=== PATIENT | male | born 1990 | race Caucasian/White ===

== ENCOUNTER → 2017-09-29 | Outpatient (REF) | payer OTHER | LOC: M LAB REF 22:08 | DX: F11.11 Opioid abuse, in remission (principal) ==

== ENCOUNTER → 2017-10-01 | Outpatient (REF) | payer OTHER, MEDICAID ==
[2017-10-06 10:11] LABS: AMPHETAMINE SCREEN, URINE See Final Results ng/mL (Cutoff=1000); AMPHETAMINE, URINE GC/MS 2230 ng/mL (Cutoff=500); AMPHETAMINES , URINE Positive (.); AMPHETAMINES , URINE Positive (Cutoff=1000); BARBITURATES SCREEN, URINE Negative ng/mL (Cutoff=200); BENZODIAZEPINES, URINE SCREEN Negative ng/mL (Cutoff=200); CANNABINOID SCREEN, URINE Negative ng/mL (Cutoff=20); COCAINE SCREEN, URINE Negative ng/mL (Cutoff=300); CREATININE, URINE 250.8 mg/dL (20.0-300.0); FENTANYL URINE SCREEN Negative pg/mL (Cutoff=2000); METHADONE, URINE SCREEN Negative ng/mL (Cutoff=300); METHAMPHETAMINE, URINE Negative (Cutoff=500); OPIATE SCREEN, URINE Negative ng/mL (Cutoff=300); OXYCODONE, SCREEN, URINE Negative ng/mL (Cutoff=100); PCP SCREEN, URINE Negative ng/mL (Cutoff=25); SPECIFIC GRAVITY, URINE 1.028 (.); pH, URINE 5.5 (4.5-8.9)
== END ==
LOC: M LAB REF 16:55
DX: F11.11 Opioid abuse, in remission (principal)

== ENCOUNTER → 2017-10-05 | Outpatient (CLI) | payer OTHER | LOC: M OUTALCOH 07:54 | DX: Z13.9 Encounter for screening, unspecified (principal); F11.20 Opioid dependence, uncomplicated; F14.20 Cocaine dependence, uncomplicated ==

== ENCOUNTER 2017-10-27 08:00 | Outpatient (RCR) | payer OTHER | END 2017-11-06 | LOC: M OUTALCOH 08:00 | DX: F11.20 Opioid dependence, uncomplicated (principal); F14.20 Cocaine dependence, uncomplicated; F17.200 Nicotine dependence, unspecified, uncomplicated ==

== ENCOUNTER 2017-11-08 11:52 | Outpatient (RCR) | payer OTHER | END 2017-12-06 | LOC: M OUTALCOH 11:52 | DX: F11.20 Opioid dependence, uncomplicated (principal); F14.20 Cocaine dependence, uncomplicated; F17.200 Nicotine dependence, unspecified, uncomplicated ==

== ENCOUNTER 2017-12-31 12:55 | Outpatient (RCR) | payer OTHER | END 2018-01-06 | LOC: M OUTALCOH 12:55 | DX: F11.20 Opioid dependence, uncomplicated (principal); F14.20 Cocaine dependence, uncomplicated; F17.200 Nicotine dependence, unspecified, uncomplicated ==

== ENCOUNTER 2018-02-16 20:24 | Emergency (ER) | payer OTHER ==
[2018-02-16] MEDS: BACTRIM 160MG/800MG DS TAB PO (22:16)
== END 2018-02-16 22:34 | disposition home or self-care (01) ==
LOC: M ED 20:24
DX: L03.115 Cellulitis of right lower limb (principal); L03.116 Cellulitis of left lower limb; F19.20 Other psychoactive substance dependence, uncomplicated; F17.210 Nicotine dependence, cigarettes, uncomplicated
CPT/HCPCS: 99283

== ENCOUNTER 2018-03-08 19:30 | Emergency (ER) | payer OTHER ==
[2018-03-08] MEDS: CLINDAMYCIN 150 MG CAP PO (21:33)
== END 2018-03-08 21:42 | disposition home or self-care (01) ==
LOC: M ED 19:30
DX: L02.416 Cutaneous abscess of left lower limb (principal); Z86.19 Personal history of other infectious and parasitic diseases; Z72.0 Tobacco use
CPT/HCPCS: 99283

== ENCOUNTER → 2018-03-28 | Outpatient (CLI) | payer OTHER | LOC: M OUTALCOH 07:46 | DX: F11.20 Opioid dependence, uncomplicated (principal); F15.20 Other stimulant dependence, uncomplicated; F14.20 Cocaine dependence, uncomplicated ==

== ENCOUNTER 2018-08-03 22:38 | Emergency (ER) | payer OTHER ==
[~2018-08-03] VITALS: Ht 175.3 cm; Wt 63.6 kg
[~2018-08-03 22:38] MED LIST: BACT800T5 PO; CLEO300C2 PO; SUBO8MIS SL
[2018-08-03] MEDS ORDERED: LIDOCAINE 1% MDV 20ML VIAL IM ONE (23:30)
[2018-08-03] MEDS ORDERED: KEFL500C17 PO (23:57)
[2018-08-04] MEDS ORDERED: CEPHALEXIN 500 MG CAP PO ONE
[2018-08-04 00:10] VITALS: BP 119/70
[2018-08-04] MEDS ORDERED: NEOSPORIN OINT 0.9 GM PKT (FLOOR STOCK) TOP ONE (00:15)
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
== END 2018-08-04 00:13 | disposition home or self-care (01) ==
LOC: M ED 22:38
DX: S61.211A Laceration without foreign body of left index finger without damage to nail, initial encounter (principal); S50.811A Abrasion of right forearm, initial encounter; S00.11XA Contusion of right eyelid and periocular area, initial encounter; Y04.8XXA Assault by other bodily force, initial encounter; Y92.008 Other place in unspecified non-institutional (private) residence as the place of occurrence of the external cause; B19.20 Unspecified viral hepatitis C without hepatic coma; Z79.890 Hormone replacement therapy; F17.210 Nicotine dependence, cigarettes, uncomplicated

== ENCOUNTER 2018-08-30 13:03 | Inpatient (IN) | payer OTHER ==
[~2018-08-30] VITALS: Ht 175.3 cm; Wt 61.9 kg
[~2018-08-30 13:03] MED LIST changes: +KEFL500C17 PO
[2018-08-30 13:53] LABS: BASO % 0.3 % (0.0-1.0); EOS % 0.6 % (0.0-3.0); HEMATOCRIT 41.7 % (42.0-52.0); HEMOGLOBIN 14.2 g/dl (13.5-17.5); LYMPH % 15.8 % (24.0-44.0); MEAN CORPUSCULAR HEMOGLOBIN 28.6 pg (27.0-33.0); MEAN CORPUSCULAR HGB CONC 34.1 g/dl (32.0-36.5); MEAN CORPUSCULAR VOLUME 84.1 fl (80.0-96.0); MONO # 0.3 10^3/uL (0.0-0.8); NEUTROPHILS % 78.8 % (36.0-66.0); PLATELET COUNT, AUTOMATED 183 10^3/uL (150-450); RED BLOOD COUNT 4.96 10^6/uL (4.30-6.10); WHITE BLOOD COUNT 6.3 10^3/uL (4.0-10.0)
[2018-08-30 14:21] LABS: BLOOD UREA NITROGEN 12 MG/DL (7-18); C REACTIVE PROTEIN QUANTITATIV 6.88 MG/DL (0.00-0.30); CALCIUM LEVEL 9.3 MG/DL (8.5-10.1); CARBON DIOXIDE LEVEL 26 MEQ/L (21-32); CHLORIDE LEVEL 103 MEQ/L (98-107); GLOMERULAR FILTRATION RATE > 60.0 (>60); GLUCOSE, FASTING 96 MG/DL (70-100); POTASSIUM SERUM 4.1 MEQ/L (3.5-5.1); SODIUM LEVEL 137 MEQ/L (136-145)
--- NOTE | 2018-08-30 14:34 | REP ---
Hand series: Four views. History: Septic left second MCP joint. Comparison study is from August 03, 2018. Findings: There is marked soft tissue swelling about the MCP joint proximal phalanx and PIP joint of the index finger. No soft tissue gas or opaque foreign body is seen. No fracture is noted. Impression: Marked soft tissue swelling affecting the second digit at the MCP, proximal phalanx, and PIP joints. No bony abnormality. Electronically Signed by Trino Rouse MD 08/30/2018 02:26 P
[2018-08-30 14:35] LABS: ERYTHROCYTE SEDIMENTATION RATE 31 mm/hr (0-15)
--- NOTE | 2018-08-30 15:42 | CR ---
DATE OF CONSULTATION: 08/30/2018 CONSULTATION REPORT FOR: Dr. Jay Nava CHIEF COMPLAINT: Left hand pain, redness and swelling. HISTORY: The patient is a 28-year-old male presenting to the emergency room (ER) with the [facility] Department for redness, swelling, and associated pain in his left hand from IV drug use approximately three days ago. The patient injected into a small vein at the base of his index finger and the next day started noticing the pain and swelling. The patient also had a laceration to that finger that was staged up in the emergency room nearly one month ago. The patient did not have those sutures removed. The patient complaining of the majority of pain over the second metacarpophalangeal joint and to a lesser extent over the third metacarpophalangeal joint. CHRONIC MEDICAL CONDITIONS: 1. Drug abuse. 2. Hepatitis C. CHRONIC MEDICATIONS: None. ALLERGIES: No known drug allergies. SOCIAL HISTORY: The patient smokes one pack per day, alcohol and drug abuse. FAMILY HISTORY: Noncontributory. REVIEW OF SYSTEMS: The patient denies fevers, chills, nausea, vomiting or diarrhea. Denies any chest pain, shortness of breath, headaches or dizziness. Complains of pain in the left hand most pronounced over the second and third metacarpophalangeal joints with stiffness and decreased motion. PHYSICAL EXAMINATION: Well-nourished, well-developed male who appears to be in no apparent distress. He is sitting comfortably in examination room. HEART: Regular rate and rhythm. Radial pulses 2+ and equal bilaterally. RESPIRATORY: Breathing is regular and nonlabored. ABDOMEN: Soft, nontender to palpation. MUSCULOSKELETAL/SKIN: Inspection of the left hand does reveal a marked amount of edema and erythema over the second and to a lesser extent third metacarpal heads. There is quite a bit of tenderness to palpation diffusely over the second metacarpophalangeal head. No real pain tracking down the palm along the flexor tendon. There is a laceration to the finger at approximately the level of the proximal interphalangeal joint that is scabbed over. The patient does have limited range of motion of the metacarpophalangeal joint and the proximal interphalangeal joint secondary to pain and swelling. His capillary refill is brisk. Radial pulses are palpable and equal bilaterally. Light touch is intact. No pain at the proximal hand, wrist or forearm. LABORATORY DATA: Complete blood count: WBC is 6.3, RBC is 4.96, hemoglobin 14.2, hematocrit decreased at 41.7, platelets 183, neutrophil percentage elevated at 78.8, lymphocytes percent decreased at 15.8, ESR elevated at 31. Comprehensive metabolic profile: Sodium 137, potassium 4.1, chloride 103, carbon dioxide 26, anion gap 8, BUN 12, creatinine 0.70, GFR greater than 60, fasting glucose 96, lactic acid 1.2, calcium 9.3. IMAGING STUDIES: Four views of the left hand reveals marked soft tissue swelling affecting the second digit at the metacarpophalangeal joint, proximal phalanx and PIP joint. No bony abnormality. IMPRESSION: Cellulitis to the left hand over the second metacarpophalangeal joint and to a lesser extent the third metacarpophalangeal joint. PLAN: Dr. Joe, orthopedics, was consulted and recommendation was for an MRI of the left hand. Based on MRI results, the patient will likely be admitted to medicine for IV antibiotics.
[2018-08-30] MEDS ORDERED: PROHANCE 279.3MG/ML 15ML VIAL (A9576) As Ordered ONE (16:04)
[2018-08-30] MEDS ORDERED: cefTRIAXone SOD 1 GM in D5W MINI-BAG PLUS 50 ML IV ONE (18:15)
--- NOTE | 2018-08-30 18:19 | REP ---
MRI LEFT HAND WITHOUT CONTRAST: Multiple sequences obtained in the axial, coronal and sagittal planes. There is ill-defined high signal on T2-weighted images in the soft tissues of the second digit predominantly proximally near the metacarpophalangeal joint. This is predominantly lateral and anteriorly located. There is soft tissue swelling. The findings are most consistent with cellulitis and phlegmonous change with edema. No drainable abscess collection is seen. Osseous structures demonstrate normal marrow signal with no evidence of occult fracture or osteomyelitis. Flexor and extensor tendons appear intact. Osseous structures are well aligned. Collateral ligaments appear intact. IMPRESSION: Edema and probable cellulitis involving the soft tissues of the second digit predominantly anterolaterally in the proximal aspect of the digit. No drainable abscess is seen. No findings of osteomyelitis are seen. No joint effusions are seen. Electronically Signed by Andrés Garrido MD 08/30/2018 07:29 P
[2018-08-30] MEDS ORDERED: ACETAMINOPHEN TAB 650MG DOSE (2X325MG) PO PRN (19:15)
[2018-08-30] MEDS ORDERED: SUBO8MIS SL (19:30)
--- NOTE | 2018-08-30 20:10 | PHACANCOPD ---
PHARMACY VANCOMYCIN DOSING Pt Demographics Demographics Patient Age:28 , Weight:63.640 , Gender: male Adjusted Body Weight Date: 08/30/18, Adjusted Body Weight: Kg Events Past 24 Hours Events Past 24 Hours: NO: Dialysis, Diuretic Therapy, Change in CrCl, Fever, Elevation in WBC, Pending Diagnostics, Pending Procedures, Other Vancomycin Vancomycin Target Ranges: 10-20 mcg/ml Vancomycin Load Y/N: No Load Dose Date Time Vancomycin Load Dose: Date: Time: Vancomycin Dose Date: 08/30/18. Current Vancomycin Dose: 1 GM IV Q8H Intermittent Dosing?: No Labs Micro Microbiology 08/30/18 Blood Culture, Received Pending 08/30/18 Blood Culture, Received Pending Creatinine Clearance Date:08/30/18. Creatinine Clearance: 155.71 Assessment and Plan Maintaining Current Dose?: Yes Reason for dose change: No Dose Change Pharmacist Note Pharmacist Note Date: 08/30/18. Pharmacist note: Pharmacy consulted for Vancomycin dosing, skin and soft tissue infection with a goal trough of 10-20 mcg/ml. No MRSA or vancomycin history here at [facility]. ESR and CRP elevated. Will start him on Vanco 1 GM IV Q8H @1999. Pharmacy will continue to monitor and make dose adjustments as needed. [facility] Aug 30, 2018 20:10
[2018-08-30] MEDS: VANCOMYCIN HCL 1,000 MG, VIAL MATE ADAPTER 1 EACH in D5W 250 ML IV SCH (20:22)
[2018-08-30 21:15] VITALS: BP 132/70
[2018-08-30] MEDS: BUPRENORPHINE/NALOXONE 8-2MG SUBLINGUAL TABLET(SUBOXONE) SL SCH (21:43)
--- NOTE | 2018-08-30 21:58 | HPE ---
DATE OF ADMISSION: 08/30/2018 He does not have a primary care provider. ATTENDING PHYSICIAN: Dr. Harris ACCOUNTING/FINANCE TUTOR: Orthopedic service. HISTORY OF THE PRESENT ILLNESS: The patient is a 28-year-old white male from [facility] for infection in his left hand. History is provided by himself. Per the patient, he stated he used to inject heroin in the past but now he injects amphetamine, which was done 2 days ago before he went to the detention. Due to worsening swelling, redness, and pain in his left hand and he was sent to the emergency room (ER) for further evaluation. He denies fever and chills. In the ER, he was consulted with the orthopedic service. He had an x-ray, as well as MRI of his left hand, which did not show any evidence of osteomyelitis. The medicine service was called for admission for IV antibiotics. REVIEW OF SYSTEMS: Denies fever. No chills. No headache. No blurred vision. No shortness of breath. No coughing. No chest pain. No nausea, no vomiting. No abdominal pain. No diarrhea. No tingling, numbness, or weakness in the arms or lower extremities. All other systems were reviewed but negative. PAST MEDICAL HISTORY: 1. Hepatitis C, which was treated 2. Intravenous (IV) drug use PAST SURGICAL HISTORY: None. ALLERGIES: No known allergies. SOCIAL HISTORY: He smokes cigarettes, a pack a day. Denies alcohol abuse but does have IV drug abuse. He is FULL CODE. He is taking Suboxone for rehab. FAMILY HISTORY: Noncontributory. PHYSICAL EXAMINATION: VITAL SIGNS: Temperature 97.8, heart rate is 107, respiratory rate 16, blood pressure 102/65, oxygen saturation 97% on room air. GENERAL: He is awake, alert, oriented times three. He is not in acute distress. HEENT: Atraumatic. Pupils are equal, round, reactive to light. No jaundice. Extraocular muscles intact. Ears, nose and throat: Normal. Mouth: Mucosa not dry. NECK: No jugular venous distention (JVD). No bruits. LUNGS: Clear. No wheezing, no crackles. HEART; S1, S2, regular. No murmur. ABDOMEN: Soft. Bowel sounds positive, nontender. LOWER EXTREMITIES: No edema in bilateral lower extremities. NEUROLOGIC: Nonfocal. SKIN: No rash. PSYCHOLOGIC: No acute psychosis. REGARDING HIS LEFT HAND: There is a marked amount of edema and erythema over the 2nd and 3rd finger area but no evidence of abscess. DIAGNOSTIC AND LAB STUDIES: CBC and differential showed WBC 6.3, hemoglobin and hematocrit 14 over 41, platelets 183. Sodium 137, potassium 4.1, chloride 103, bicarbonate 26, BUN 12, creatinine 0.7, glucose 96. X-ray as well as MRI of the left hand revealed no evidence of osteomyelitis. IMPRESSION: 1. Left hand cellulitis. 2. IV drug abuser. PLAN: The patient will be admitted to medical-surgical floor. I will treat him with IV Ancef as well as vancomycin and will follow cultures. Orthopedics was consulted in the ER and they will followup. ANNABELLE
[2018-08-30 22:00] VITALS: BP 109/61
[2018-08-31] MEDS: ceFAZolin SOD 1 GM in D5W MINI-BAG PLUS 50 ML IV SCH ×3 (03:05→18:04)
[2018-08-31] MEDS: VANCOMYCIN HCL 1,000 MG, VIAL MATE ADAPTER 1 EACH in D5W 250 ML IV SCH ×3 (04:00→20:11)
[2018-08-31 06:00] VITALS: BP 101/59
[2018-08-31 06:47] LABS: BASO % 0.5 % (0.0-1.0); EOS # 0.1 10^3/uL (0.0-0.50); EOS % 1.5 % (0.0-3.0); HEMATOCRIT 38.6 % (42.0-52.0); HEMOGLOBIN 12.9 g/dl (13.5-17.5); LYMPH % 33.2 % (24.0-44.0); MEAN CORPUSCULAR HEMOGLOBIN 28.4 pg (27.0-33.0); MEAN CORPUSCULAR HGB CONC 33.4 g/dl (32.0-36.5); MEAN CORPUSCULAR VOLUME 84.8 fl (80.0-96.0); MONO # 0.5 10^3/uL (0.0-0.8); MONO % 8.8 % (0.0-5.0); NEUTROPHILS # 3.4 10^3/uL (1.8-7.7); NEUTROPHILS % 55.7 % (36.0-66.0); PLATELET COUNT, AUTOMATED 140 10^3/uL (150-450); RED BLOOD COUNT 4.55 10^6/uL (4.30-6.10); WHITE BLOOD COUNT 6.1 10^3/uL (4.0-10.0)
[2018-08-31 06:49] LABS: BLOOD UREA NITROGEN 14 MG/DL (7-18); CALCIUM LEVEL 8.4 MG/DL (8.5-10.1); CARBON DIOXIDE LEVEL 22 MEQ/L (21-32); CHLORIDE LEVEL 109 MEQ/L (98-107); CREATININE FOR GFR 0.62 MG/DL (0.70-1.30); GLOMERULAR FILTRATION RATE > 60.0 (>60); GLUCOSE, FASTING 98 MG/DL (70-100); POTASSIUM SERUM 3.5 MEQ/L (3.5-5.1); SODIUM LEVEL 139 MEQ/L (136-145)
[2018-08-31 08:47] LABS: C REACTIVE PROTEIN QUANTITATIV 2.88 MG/DL (0.00-0.30)
[2018-08-31] MEDS: BUPRENORPHINE/NALOXONE 8-2MG SUBLINGUAL TABLET(SUBOXONE) SL SCH ×2 (09:35→20:11)
[2018-08-31] MEDS: ENOXAPARIN 40 MG/0.4 ML SYRINGE (J1650) SC SCH (09:36)
--- NOTE | 2018-08-31 11:31 | IPNPDOC ---
Date Seen The patient was seen on 08/31/18. Progress Note SUBJECTIVE: Patient is a 28 year old male seen today and examined at bedside with two police officers at bedside. States to be feeling relatively well. There is some tenderness on his left finger which is still constant. He has no new complaints today and denies sob, chills, fevers, nausea, vomiting or diarrhea. OBJECTIVE PHYSICAL EXAMINATION: VITAL SIGNS: Please see below. GENERAL: He is awake, alert, oriented times three. He is not in acute distress. HEENT: Atraumatic. Pupils are equal, round, reactive to light. No jaundice. Extraocular muscles intact. Ears, nose and throat: Normal. Mouth: Mucosa not dry. JVD No bruits. LUNGS: Clear. No wheezing, no crackles. HEART; S1, S2, regular. No murmur. ABDOMEN: Soft. Bowel sounds positive, nontender. EXTREMITIES: No edema in bilateral lower extremities. Upper extremity: erythematous edema over the 2nd and 3rd finger area with no evidence sign of abscess. Tender to touch most prominent at the site of IV injection on the Banuelos surface 2MCP joint. with healing wound at the lateral aspect around the 2nd PIP joint. Crusty in color with no obvious pus or drainage. NEUROLOGIC: Nonfocal. SKIN: No rash. LABORATORY DATA, IMAGING STUDIES, MICROBIOLOGY: Please see below. Echocardiogram: . DVT prophylaxis ordered?: Yes, Lovenox ASSESSMENT AND PLAN: 1. Left hand cellulitis. - Currently On Ancef and Vancomycin. Because the cellulites is pretty significant on the finger and with his hx of iv drug abuse we will continue with current antibiotics therapy and will consult Dr. Crabtree for antibiotic management. We can also deescalate antibiotics pending wound culture results. 2. IV drug abuser. -states to share needle. -testing for HIV, Hepatitis Panel and HCV viral load. 3. Hx of Hepatitis C in the past. VS, I&O, 24H, Fishbone Vital Signs/I&O Vital Signs Date Time Temp Pulse Resp B/P (MAP) Pulse Ox O2 Delivery O2 Flow Rate FiO2 08/31/18 06:00 97.4 70 18 101/59 (73) 97 Room Air I&O- Last 24 Hours up to 6 AM 08/31/18 06:00 Intake Total 480 ml Output Total 300 ml Balance 180 ml Laboratory Data 24H LABS Laboratory Tests 2 08/30/18 13:40: Immature Granulocyte % (Auto) 0.5, White Blood Count 6.3, Red Blood Count 4.96, Hemoglobin 14.2, Hematocrit 41.7L, Mean Corpuscular Volume 84.1, Mean Corpuscular Hemoglobin 28.6, Mean Corpuscular Hemoglobin Concent 34.1, Red Cell Distribution Width 12.8, Platelet Count 183, Neutrophils (%) (Auto) 78.8H, Lymphocytes (%) (Auto) 15.8L, Monocytes (%) (Auto) 4.0, Eosinophils (%) (Auto) 0.6, Basophils (%) (Auto) 0.3, Neutrophils # (Auto) 5.0, Lymphocytes # (Auto) 1.0L, Monocytes # (Auto) 0.3, Eosinophils # (Auto) 0.0, Basophils # (Auto) 0.0, Nucleated Red Blood Cells % (auto) 0.0, Erythrocyte Sedimentation Rate 31H, Anion Gap 8, Glomerular Filtration Rate > 60.0, Lactic Acid Level 1.2, Blood Urea Nitrogen 12, Creatinine 0.70, Sodium Level 137, Potassium Level 4.1, Chloride Level 103, Carbon Dioxide Level 26, Calcium Level 9.3, C-Reactive Protein, Quantitative 6.88H 08/31/18 06:05: Immature Granulocyte % (Auto) 0.3, White Blood Count 6.1, Red Blood Count 4.55, Hemoglobin 12.9L, Hematocrit 38.6L, Mean Corpuscular Volume 84.8, Mean Corpuscular Hemoglobin 28.4, Mean Corpuscular Hemoglobin Concent 33.4, Red Cell Distribution Width 12.7, Platelet Count 140L, Neutrophils (%) (Auto) 55.7, Lymphocytes (%) (Auto) 33.2, Monocytes (%) (Auto) 8.8H, Eosinophils (%) (Auto) 1.5, Basophils (%) (Auto) 0.5, Neutrophils # (Auto) 3.4, Lymphocytes # (Auto) 2.0, Monocytes # (Auto) 0.5, Eosinophils # (Auto) 0.1, Basophils # (Auto) 0.0, Nucleated Red Blood Cells % (auto) 0.0, Anion Gap 8, Glomerular Filtration Rate > 60.0, Blood Urea Nitrogen 14, Creatinine 0.62L, Sodium Level 139, Potassium Level 3.5, Chloride Level 109H, Carbon Dioxide Level 22, Calcium Level 8.4L, C- Reactive Protein, Quantitative 2.88H 08/31/18 09:16: CBC/BMP Laboratory Tests 08/30/18 13:40 Red Blood Count 4.96, Mean Corpuscular Volume 84.1, Mean Corpuscular Hemoglobin 28.6, Mean Corpuscular Hemoglobin Concent 34.1, Red Cell Distribution Width 12.8, Neutrophils (%) (Auto) 78.8 H, Lymphocytes (%) (Auto) 15.8 L, Monocytes (%) (Auto) 4.0, Eosinophils (%) (Auto) 0.6, Basophils (%) (Auto) 0.3, Neutrophils # (Auto) 5.0, Lymphocytes # (Auto) 1.0 L, Monocytes # (Auto) 0.3, Eosinophils # (Auto) 0.0, Basophils # (Auto) 0.0, Calcium Level 9.3 08/31/18 06:05 Red Blood Count 4.55, Mean Corpuscular Volume 84.8, Mean Corpuscular Hemoglobin 28.4, Mean Corpuscular Hemoglobin Concent 33.4, Red Cell Distribution Width 12.7, Neutrophils (%) (Auto) 55.7, Lymphocytes (%) (Auto) 33.2, Monocytes (%) (Auto) 8.8 H, Eosinophils (%) (Auto) 1.5, Basophils (%) (Auto) 0.5, Neutrophils # (Auto) 3.4, Lymphocytes # (Auto) 2.0, Monocytes # (Auto) 0.5, Eosinophils # (Auto) 0.1, Basophils # (Auto) 0.0, Calcium Level 8.4 L Microbiology Microbiology 08/30/18 Blood Culture, Received Pending 08/30/18 Blood Culture, Received Pending GME ATTESTATION GME ATTESTATION My faculty preceptor for this patient encounter was physically present during the encounter and was fully available. All aspects of the patient interview, examination, medical decision making process, and medical care plan development were reviewed and approved by the faculty preceptor. The faculty preceptor is aware and concurs with the plan as stated in the body of this note and will attest to such by his/her cosignature. VERONICA MERINO DO Aug 31, 2018 11:31
[2018-08-31 14:00] VITALS: BP 103/56
[2018-08-31 15:39] LABS: HEPATITIS A ANTIBODY IGM NEGATIVE (NEGATIVE); HEPATITIS B CORE ANTIBODY IGM NEGATIVE (NEGATIVE); HEPATITIS B SURFACE ANTIGEN NEGATIVE (NEGATIVE); HIV 1&2 SCREEN CENTAUR NEGATIVE (NEGATIVE)
[2018-08-31 15:40] LABS: HEPATITIS C VIRUS ABY INDEX 5.8 INDEX (<0.8)
[2018-08-31 22:00] VITALS: BP 106/56
[2018-09-01] MEDS: ceFAZolin SOD 1 GM in D5W MINI-BAG PLUS 50 ML IV SCH ×2 (03:49→11:32)
[2018-09-01] MEDS: VANCOMYCIN HCL 1,000 MG, VIAL MATE ADAPTER 1 EACH in D5W 250 ML IV SCH ×2 (04:10→12:11)
[2018-09-01 06:00] VITALS: BP 106/58
[2018-09-01 06:44] LABS: BASO # 0.1 10^3/uL (0.0-0.2); EOS # 0.1 10^3/uL (0.0-0.50); EOS % 2.7 % (0.0-3.0); HEMATOCRIT 39.3 % (42.0-52.0); HEMOGLOBIN 13.2 g/dl (13.5-17.5); LYMPH # 2.5 10^3/uL (1.5-6.5); LYMPH % 47.1 % (24.0-44.0); MEAN CORPUSCULAR HGB CONC 33.6 g/dl (32.0-36.5); MEAN CORPUSCULAR VOLUME 83.3 fl (80.0-96.0); MONO # 0.4 10^3/uL (0.0-0.8); NEUTROPHILS # 2.2 10^3/uL (1.8-7.7); PLATELET COUNT, AUTOMATED 159 10^3/uL (150-450); RED BLOOD COUNT 4.72 10^6/uL (4.30-6.10); WHITE BLOOD COUNT 5.3 10^3/uL (4.0-10.0)
[2018-09-01 07:10] LABS: BLOOD UREA NITROGEN 13 MG/DL (7-18); C REACTIVE PROTEIN QUANTITATIV 1.51 MG/DL (0.00-0.30); CALCIUM LEVEL 8.5 MG/DL (8.5-10.1); CARBON DIOXIDE LEVEL 26 MEQ/L (21-32); CHLORIDE LEVEL 104 MEQ/L (98-107); CREATININE FOR GFR 0.65 MG/DL (0.70-1.30); GLOMERULAR FILTRATION RATE > 60.0 (>60); GLUCOSE, FASTING 91 MG/DL (70-100); POTASSIUM SERUM 3.4 MEQ/L (3.5-5.1); SODIUM LEVEL 139 MEQ/L (136-145)
[2018-09-01] MEDS ORDERED: POTASSIUM CHLORIDE 10 MEQ SR TABLET PO ONE (08:00)
[2018-09-01] MEDS: BUPRENORPHINE/NALOXONE 8-2MG SUBLINGUAL TABLET(SUBOXONE) SL SCH ×2 (08:47→21:42)
[2018-09-01] MEDS: ENOXAPARIN 40 MG/0.4 ML SYRINGE (J1650) SC SCH (08:48)
[2018-09-01 14:00] VITALS: BP 109/59
--- NOTE | 2018-09-01 14:45 | IPNPDOC ---
Date Seen The patient was seen on 09/01/18. Progress Note SUBJECTIVE: Patient is a 28 year old male seen today and examined at bedside with two police officers at bedside. States to be feeling relatively well. There is some tenderness on his left finger but it is better. His erythema has gotten better as well. He has no complaints this morning denies any shortness of breath chest pain nausea vomiting diarrhea. His tolerating his medication with no pr oblem as well. OBJECTIVE PHYSICAL EXAMINATION: VITAL SIGNS: Please see below. GENERAL: He is awake, alert, oriented times three. He is not in acute distress. HEENT: Atraumatic. Pupils are equal, round, reactive to light. No jaundice. Extraocular muscles intact. LUNGS: Clear. No wheezing, no crackles. HEART; S1, S2, regular. No murmur. ABDOMEN: Soft. Bowel sounds positive, nontender. EXTREMITIES: No edema in bilateral lower extremities. Upper extremity: erythematous edema over the 2nd finger (improving) with no evidence sign of abscess. Tender to touch most prominent at the site of IV injection on the Banuelos surface 2MCP joint. with healing wound at the lateral aspect around the 2nd PIP joint. Crusty in color with no obvious pus or drainage. NEUROLOGIC: Nonfocal. SKIN: No rash. LABORATORY DATA, IMAGING STUDIES, MICROBIOLOGY: Please see below. DVT prophylaxis ordered?: Yes, Armando ASSESSMENT AND PLAN: 1. Left hand cellulitis. - Currently On Ancef and Vancomycin. Because the cellulites is pretty significant on the finger and with his hx of iv drug abuse we will continue with current antibiotics therapy -Dr. Crabtree consult for antibiotic management. We can also deescalate antibiotics pending her recommendation. 2. IV drug abuser. -states to share needle. -HIV Hepatitis Panel negative -HCV viral load - pending 3. Hx of Hepatitis C in the past. VS, I&O, 24H, Fishbone Vital Signs/I&O Vital Signs Date Time Temp Pulse Resp B/P (MAP) Pulse Ox O2 Delivery O2 Flow Rate FiO2 09/01/18 06:00 98.4 64 18 106/58 (74) 99 Room Air I&O- Last 24 Hours up to 6 AM 09/01/18 06:00 Intake Total 2230 ml Output Total 100 ml Balance 2130 ml Laboratory Data 24H LABS Laboratory Tests 2 1/23/19 18:59: Vancomycin Level Trough 10.7 09/01/18 06:25: Immature Granulocyte % (Auto) 0.2, White Blood Count 5.3, Red Blood Count 4.72, Hemoglobin 13.2L, Hematocrit 39.3L, Mean Corpuscular Volume 83.3, Mean Corpuscular Hemoglobin 28.0, Mean Corpuscular Hemoglobin Concent 33.6, Red Cell Distribution Width 12.8, Platelet Count 159, Neutrophils (%) (Auto) 41.0, Lymphocytes (%) (Auto) 47.1H, Monocytes (%) (Auto) 8.0H, Eosinophils (%) (Auto) 2.7, Basophils (%) (Auto) 1.0, Neutrophils # (Auto) 2.2, Lymphocytes # (Auto) 2.5, Monocytes # (Auto) 0.4, Eosinophils # (Auto) 0.1, Basophils # (Auto) 0.1, Nucleated Red Blood Cells % (auto) 0.0, Anion Gap 9, Glomerular Filtration Rate > 60.0, Blood Urea Nitrogen 13, Creatinine 0.65L, Sodium Level 139, Potassium Level 3.4L, Chloride Level 104, Carbon Dioxide Level 26, Calcium Level 8.5, C- Reactive Protein, Quantitative 1.51H CBC/BMP Laboratory Tests 09/01/18 06:25 Red Blood Count 4.72, Mean Corpuscular Volume 83.3, Mean Corpuscular Hemoglobin 28.0, Mean Corpuscular Hemoglobin Concent 33.6, Red Cell Distribution Width 12.8, Neutrophils (%) (Auto) 41.0, Lymphocytes (%) (Auto) 47.1 H, Monocytes (%) (Auto) 8.0 H, Eosinophils (%) (Auto) 2.7, Basophils (%) (Auto) 1.0, Neutrophils # (Auto) 2.2, Lymphocytes # (Auto) 2.5, Monocytes # (Auto) 0.4, Eosinophils # (Auto) 0.1, Basophils # (Auto) 0.1, Calcium Level 8.5 Microbiology Microbiology 08/30/18 Blood Culture - Preliminary, Resulted No growth after 24 hours . All specim... 08/30/18 Blood Culture - Preliminary, Resulted No Growth after 48 hours. All Specime... GME ATTESTATION GME ATTESTATION My faculty preceptor for this patient encounter was physically present during the encounter and was fully available. All aspects of the patient interview, examination, medical decision making process, and medical care plan development were reviewed and approved by the faculty preceptor. The faculty preceptor is aware and concurs with the plan as stated in the body of this note and will attest to such by his/her cosignature. VERONICA MERINO DO Sep 01, 2018 14:45
[2018-09-01] MEDS ORDERED: AUGM875T28 PO (16:27)
[2018-09-01] MEDS ORDERED: BACT800T5 PO (16:27)
[2018-09-01] MEDS ORDERED: ADACEL/BOOSTRIX VACCINE (DIPHTH/PERTUSS/ACELL/TETANUS)0.5ML SYR (90715) IM ONE (16:30)
--- NOTE | 2018-09-01 20:27 | CR ---
DATE OF CONSULTATION: 09/01/2018 REQUESTING PROVIDER: Dr. Harris REASON FOR CONSULTATION: Left finger / hand cellulitis. HISTORY OF PRESENT ILLNESS: This is a 26-year-old male who presented to the emergency department on 08/30/2018 from the [facility] for infection of his left hand. He states that about a month ago he cut his hand on a window and received stitches. He did not seek a provider to remove the stitches for him, so he started picking at them with his teeth. He was able to loosen two of the stitches, and then was incarcerated approximately 2 days before he showed up to the emergency department with cellulitis. He did have some swelling and redness, as well as pain in his hand at this time, and he was sent to the emergency room for further evaluation. He was admitted to the hospital with an orthopedic consultation and was treated with IV vancomycin and cephazolin. The patient states that his hand has gotten much better, he is now able to move his fingers, the redness is decreased, and the swelling has slowly decreased as well. He denies any fevers or chills, nausea, vomiting, or diarrhea. He denies any other rashes or lesions, problems breathing, or cough. REVIEW OF SYSTEMS: CONSTITUTIONAL: Denies any weight loss, night sweats, fevers, chills, changes in appetite. HEENT: Denies vision changes, headache, double vision, epistaxis, sinus pain, tinnitus, sore throat or runny nose. CARDIOVASCULAR: Denies chest pain, orthopnea, edema, palpitations or paroxysmal nocturnal dyspnea. RESPIRATORY: Denies cough, sputum production, wheezes, hemoptysis, shortness of breath GASTROINTESTINAL: Denies abdominal pain, unintentional weight loss, difficulty swallowing, indigestion, anorexia, nausea, vomiting, diarrhea, constipation, obstipation, hematemesis, hematochezia, melena or tenesmus. GENITOURINARY: Denies incontinence, dysuria, hematuria, nocturia, polyuria, hesitancy, or dribbling. MUSCULOSKELETAL: Admits to stiffness and joint swelling in his left hand, as well as erythema and pain. Otherwise has no stiffness, decreased range of motion or any other joint swelling. INTEGUMENTARY: Admits to redness on the left hand, which is improved. Denies pruritus, other rashes, striae, lesions, wounds or incisions. NEUROLOGIC: Denies any changes to sight / smell / hearing / taste, seizures, headaches, paresthesias or numbness. PSYCHIATRIC: Denies depression, anhedonia, anxiety or paranoia. ENDOCRINE: Denies hot or cold intolerance, diarrhea, sweatiness, palpitations, visual disturbances, constipation or dry skin. Denies polydipsia or polyuria. HEMATOLOGIC: Denies anemia, purpura, petechiae, easy bruising or bleeding. LYMPHATICS: Denies any lumps or bumps anywhere. PAST MEDICAL HISTORY: 1. History of hepatitis C, which was treated. 2. Intravenous drug use. PAST SURGICAL HISTORY: None. ALLERGIES: NO KNOWN DRUG ALLERGIES. SOCIAL HISTORY: The patient does typically smoke about a pack a day of cigarettes. He denies alcohol abuse but does have IV drug abuse. He used to inject heroin however, now he injects amphetamine. He is taking Suboxone for rehab through a doctor in [place] FAMILY HISTORY: Noncontributory. PHYSICAL EXAMINATION: VITALS: Temperature 98.3, pulse 98, respiratory rate 18, blood pressure 109/59, pulse oximetry is 98% on room air. GENERAL: The patient is alert and oriented, sitting up in the bed in no acute distress. HEENT: Atraumatic, normocephalic. Mucous membranes are moist, the patient has his own teeth and dentition is fair. There are no sores in the mouth. Mucous membranes are moist. Pupils are equal, round and reactive to light. NECK: Supple, no nuchal rigidity, no lymphadenopathy or thyromegaly. LUNGS: Clear to auscultation bilaterally. No wheezes, rhonchi or rales. HEART: Regular rate and rhythm. No murmurs, gallops or rubs. ABDOMEN: Soft, normoactive bowel sounds, nontender to palpation. EXTREMITIES: No clubbing, cyanosis or edema. Along the lateral aspect of the first digit there is a laceration at the level of the proximal interphalangeal joint, which is scabbed over. The left hand itself does have some swelling with light erythema however, the patient is able to open and close his hand. Capillary refill is less than 2 seconds. Radial pulses are palpable and equal bilaterally. NEUROLOGIC: No sensory deficits are noted. Light touch to the hand is intact bilaterally. Muscle strength is even bilaterally. SKIN: Aside from the left hand, there are no rashes, lesions or discolorations. LABORATORY DATA: Complete blood count (CBC): WBC 5.3, hemoglobin 13.2, hematocrit 39.3, platelets 159. Chemistry: Sodium 139, potassium 3.4, chloride 104, carbon dioxide 26, anion gap 9, BUN 13, creatinine 0.65, fasting glucose 91, calcium 8.5, C-reactive protein 1.51. Toxicology: Vancomycin trough 10.7. Serology: Hepatitis A IgM antibody is negative, hepatitis B surface antigen negative, hepatitis B core IgM antibody negative, hepatitis C antibody index 5.8, hepatitis C virus RNA qualitative pending. HIV is negative. Blood cultures times two were negative 48 hours. Hand x-ray shows marked soft tissue swelling affecting the second digit at the metacarpophalangeal joint, proximal phalanx and proximal interphalangeal joint. No bony abnormality. Hand MRI showed edema and probable cellulitis involving the soft tissues of the second digit, predominantly anterolaterally in the proximal aspect of the digit. No drainable abscess is seen. No findings of osteomyelitis is seen. No joint effusions are seen. ASSESSMENT AND PLAN: This is a 28-year-old male with cellulitis of the left hand that was probably caused by picking at his stitches with his teeth. C-reactive protein has gone from 6.88-1.51. The patient is as febrile. He is feeling much better and is regaining more range of motion in his hand. He has had 3 days of IV antibiotics, so we will be de-escalating him to oral Augmentin and Bactrim starting tonight, he will need an additional 7 days of these twice a day. My faculty preceptor for this patient encounter was physically present during the encounter and was fully available. All aspects of the patient interview, examination, medical decision making process, and medical care plan development were reviewed and approved by the faculty preceptor. The faculty preceptor is aware and concurs with the plan as stated in the body of this note and will attest to such by his/her co-signature. ANNABELLE
[2018-09-01] MEDS: BACTRIM 160MG/800MG DS TAB PO SCH (21:42)
[2018-09-01] MEDS: AUGMENTIN 875 MG TAB PO SCH (21:42)
[2018-09-01 22:00] VITALS: BP 110/59
[2018-09-02 06:00] VITALS: BP 103/88
[2018-09-02 08:45] LABS: HEMATOCRIT 41.4 % (42.0-52.0); HEMOGLOBIN 13.8 g/dl (13.5-17.5); MEAN CORPUSCULAR HGB CONC 33.3 g/dl (32.0-36.5); MEAN CORPUSCULAR VOLUME 84.1 fl (80.0-96.0); RED BLOOD COUNT 4.92 10^6/uL (4.30-6.10)
[2018-09-02] MEDS: AUGMENTIN 875 MG TAB PO SCH (08:47)
[2018-09-02] MEDS: BACTRIM 160MG/800MG DS TAB PO SCH (08:47)
[2018-09-02] MEDS: BUPRENORPHINE/NALOXONE 8-2MG SUBLINGUAL TABLET(SUBOXONE) SL SCH (08:47)
[2018-09-02] MEDS: ENOXAPARIN 40 MG/0.4 ML SYRINGE (J1650) SC SCH (08:47)
[2018-09-02 09:04] LABS: PLATELET COUNT, AUTOMATED 97 10^3/uL (150-450)
[2018-09-02 09:05] LABS: BLOOD UREA NITROGEN 13 MG/DL (7-18); CALCIUM LEVEL 8.4 MG/DL (8.5-10.1); CARBON DIOXIDE LEVEL 26 MEQ/L (21-32); CHLORIDE LEVEL 106 MEQ/L (98-107); CREATININE FOR GFR 0.74 MG/DL (0.70-1.30); GLOMERULAR FILTRATION RATE > 60.0 (>60); GLUCOSE, FASTING 80 MG/DL (70-100); POTASSIUM SERUM 4.2 MEQ/L (3.5-5.1); SODIUM LEVEL 140 MEQ/L (136-145)
[2018-09-02] MEDS ORDERED: PROB1CAP10 PO (09:52)
--- NOTE | 2018-09-02 10:54 | DS.PDOC ---
Discharge Summary General Date of Admission Aug 30, 2018 at 19:08 Date of Discharge 09/02/18 Discharge Summary PCP: None PROCEDURES PERFORMED DURING STAY: None. ADMITTING DIAGNOSES/DISCHARGE DIAGNOSES: 1. Left hand cellulitis. 2. IV drug abuser. 3. Hx of Hepatitis C in the past. COMPLICATIONS/CHIEF COMPLAINT: Cellulitis Of Left Hand. HISTORY OF PRESENT ILLNESS/ HOSPITAL COURSE: 28-year-old white male from [facility] for infection in his left hand. History is provided by himself. Per the patient, he stated he used to inject heroin in the past but now he injects amphetamine, which was done 2 days ago before he went to the [place] [facility]. Due to worsening swelling, redness, and pain in his left hand and he was sent to the emergency room (ER) for further evaluation. He denies fever and chills. In the ER, he was consulted with the orthopedic service. He had an x- ray, as well as MRI of his left hand, which did not show any evidence of osteomyelitis. The medicine service was called for admission for IV antibiotics. While admitted he was started on IV antibiotics and his symptoms improved. He was evaluated by Infectious Disease who made recommendations for antimicrobial management and PO antibiotics were sent to his pharmacy. On the day of discharge, the patient was informed to follow up with Dr. Mcmullen and continue antibiotics as proscribed. He was agreeable to this plan. DISCHARGE MEDICATIONS: Please see below. ALLERGIES: Please see below. PHYSICAL EXAMINATION ON DISCHARGE: VITAL SIGNS: Please see below. GENERAL: He is awake, alert, oriented times three. He is not in acute distress. HEENT: Atraumatic. Pupils are equal, round, reactive to light. No jaundice. Extraocular muscles intact. LUNGS: Clear. No wheezing, no crackles. HEART; S1, S2, regular. No murmur. ABDOMEN: Soft. Bowel sounds positive, nontender. EXTREMITIES: No edema in bilateral lower extremities. Upper extremity: erythematous edema over the 2nd finger (improving) with no evidence sign of abscess. Tender to touch most prominent at the site of IV injection on the Banuelos surface 2MCP joint. with healing wound at the lateral aspect around the 2nd PIP joint. Crusty in color with no obvious pus or drainage. NEUROLOGIC: Nonfocal. SKIN: No rash. LABORATORY DATA: Please see below. IMAGIN08/30/18 Hand xray- Impression: Marked soft tissue swelling affecting the second digit at the MCP, proximal phalanx, and PIP joints. No bony abnormality. Hand MRI- IMPRESSION: Edema and probable cellulitis involving the soft tissues of the second digit predominantly anterolaterally in the proximal aspect of the digit. No drainable abscess is seen. No findings of osteomyelitis are seen. No joint effusions are seen. PROGNOSIS: Fair ACTIVITY: As tolerated. DIET: Regular DISPOSITION: . [facility] DISCHARGE INSTRUCTIONS: 1. FOLLOW UP: DR HUNTLEY [phone] ( 09/14/18 @ 8AM) 2. Establish care with PCP then follow-up with PCP in 10-14 days 3. Take Antibiotics as proscribed 4. Call your physician or return to the ER if symptoms return or worsen. DISCHARGE CONDITION: Stable. TIME SPENT ON DISCHARGE: Greater than 35 minutes. Vital Signs/I&Os Vital Signs Date Time Temp Pulse Resp B/P (MAP) Pulse Ox O2 Delivery O2 Flow Rate FiO2 09/02/18 06:00 96.1 61 18 103/88 (93) 97 Room Air I&O- Last 24 Hours up to 6 AM 09/02/18 06:00 Intake Total 1800 ml Output Total 1410 ml Balance 390 ml Laboratory Data Labs 24H Laboratory Tests 2 09/02/18 05:37: C-Reactive Protein, Quantitative 0.98H Microbiology Microbiology 08/30/18 Blood Culture - Preliminary, Resulted No Growth after 48 hours. All Specime... 08/30/18 Blood Culture - Preliminary, Resulted No Growth after 48 hours. All Specime... Discharge Medications Scheduled Amoxicillin/Clavulanate Potas (Augmentin 875-125 mg) 1 Tab Tab, 1 TAB PO BID Lactobacillus (Probiotic Acidophilus) 1 Cap Cap, 1 CAP PO DAILY Trimethoprim/Sulfamethoxazole (Bactrim Ds 800-160 mg) 1 Tab Tab, 1 TAB PO BID Allergies Coded Allergies: No Known Allergies (Unverified , 08/30/18) GME ATTESTATION GME ATTESTATION My faculty preceptor for this patient encounter was physically present during the encounter and was fully available. All aspects of the patient interview, examination, medical decision making process, and medical care plan development were reviewed and approved by the faculty preceptor. The faculty preceptor is aware and concurs with the plan as stated in the body of this note and will attest to such by his/her cosignature. VERONICA MERINO DO Sep 02, 2018 07:17
== END 2018-09-02 10:55 | DRG 383 ==
LOC: M ED 13:03 → M ED INP 19:08 → M MS5PR 21:15
PROVIDERS: ADMIT Internal Medicine; ATTEND Internal Medicine
DX: L03.114 Cellulitis of left upper limb (principal); B18.2 Chronic viral hepatitis C; F17.200 Nicotine dependence, unspecified, uncomplicated

== ENCOUNTER 2019-03-19 12:34 | Emergency (ER) | payer MEDICAID, OTHER ==
[~2019-03-19] VITALS: Ht 175.3 cm; Wt 68.2 kg
[2019-03-19 12:34] VITALS: BP 130/79
[~2019-03-19 12:34] MED LIST changes: +AUGM875T28 PO; +PROB1CAP10 PO
[2019-03-19] MEDS ORDERED: BACTRIM 160MG/800MG DS TAB PO ONE ×2 (13:45→14:30)
[2019-03-19] MEDS ORDERED: LIDOCAINE 2% W/EPIN INJ 20ML **PRES FREE INJ ONE (13:45)
[2019-03-19] MEDS ORDERED: BACT800T5 PO (14:29)
== END 2019-03-19 14:40 | disposition home or self-care (01) ==
LOC: M ED 12:34
DX: K13.0 Diseases of lips (principal); Z86.19 Personal history of other infectious and parasitic diseases; Z72.0 Tobacco use

== ENCOUNTER → 2019-04-12 | Outpatient (CLI) | payer MEDICAID ==
[2019-04-12 11:48] LABS: HEMATOCRIT 39.1 % (42.0-52.0); MEAN CORPUSCULAR HEMOGLOBIN 28.3 pg (27.0-33.0); MEAN CORPUSCULAR HGB CONC 33.2 g/dl (32.0-36.5); MEAN CORPUSCULAR VOLUME 85.2 fl (80.0-96.0); PLATELET COUNT, AUTOMATED 241 10^3/uL (150-450); RED BLOOD COUNT 4.59 10^6/uL (4.30-6.10); WHITE BLOOD COUNT 8.6 10^3/uL (4.0-10.0)
[2019-04-12 12:15] LABS: ALBUMIN 3.7 GM/DL (3.2-5.2); ALT/SGPT 26 U/L (12-78); BILIRUBIN,TOTAL 0.4 MG/DL (0.2-1.0); BLOOD UREA NITROGEN 13 MG/DL (7-18); CALCIUM LEVEL 9.2 MG/DL (8.5-10.1); CARBON DIOXIDE LEVEL 26 MEQ/L (21-32); CHLORIDE LEVEL 104 MEQ/L (98-107); CREATININE FOR GFR 0.77 MG/DL (0.70-1.30); GLOMERULAR FILTRATION RATE > 60.0 (>60); GLUCOSE, FASTING 140 MG/DL (70-100); POTASSIUM SERUM 3.6 MEQ/L (3.5-5.1); SODIUM LEVEL 137 MEQ/L (136-145); TOTAL PROTEIN 7.8 GM/DL (6.4-8.2)
[2019-04-12 12:44] LABS: HEPATITIS B SURFACE ANTIGEN NEGATIVE (NEGATIVE)
[2019-04-12 13:13] LABS: HIV 1&2 SCREEN CENTAUR NEGATIVE (NEGATIVE)
[2019-04-12 13:48] LABS: HEPATITIS C VIRUS ABY INDEX 3.8 INDEX (<0.8)
[2019-04-12 13:58] LABS: CHLAMYDIA DNA AMPLIFICATION NEGATIVE (NEGATIVE); GC DNA AMPLIFICATION NEGATIVE (NEGATIVE)
--- NOTE | 2019-04-12 20:37 | ECGEPIP ---
[facility] Test Date: 2019-04-12 Pat Name: PARAG DEJESUS Department: Room: - Gender: Male Internship Coordinator: : 1990 Requested By: Andrés Meza Order Number: [id number] Reading MD: Ash Welch Measurements Intervals [place] Rate: 67 P: 73 NM: 141 QRS: 80 QRSD: 99 T: 54 QT: 385 QTc: 408 Interpretive Statements SINUS RHYTHM WITH SINUS ARRHYTHMIA POSSIBLE RIGHT VENTRICULAR CONDUCTION DELAY ST ELEVATION, PROBABLY EARLY REPOLARIZATION No prior ECG available for comparison. Electronically Signed on 04-12-2019 20:36:48 EDT by Ash Welch
== END ==
LOC: M LAB 10:31
PROVIDERS: ATTEND Family Medicine
DX: F11.20 Opioid dependence, uncomplicated (principal)

== ENCOUNTER 2019-05-02 12:26 | Emergency (ER) | payer MEDICAID ==
[~2019-05-02] VITALS: Ht 175.3 cm; Wt 63.6 kg
[2019-05-02] MEDS ORDERED: METH10TA2 PO (12:36)
[2019-05-02] MEDS ORDERED: METH5TA PO (12:36)
--- NOTE | 2019-05-02 14:52 | REP ---
Right lower extremity deep vein duplex ultrasound: The deep veins demonstrate normal compression, normal Doppler color flow and normal Doppler waveforms with respiration and augmentation from the popliteal vein to the common femoral vein. Impression: There is no right lower extremity deep vein thrombus. Electronically Signed by Andrés Basurto MD 05/02/2019 02:44 P
[2019-05-02 16:29] LABS: ALBUMIN 3.8 GM/DL (3.2-5.2); ALT/SGPT 22 U/L (12-78); BLOOD UREA NITROGEN 18 MG/DL (7-18); CALCIUM LEVEL 9.3 MG/DL (8.5-10.1); CARBON DIOXIDE LEVEL 29 MEQ/L (21-32); CHLORIDE LEVEL 96 MEQ/L (98-107); CREATININE FOR GFR 0.89 MG/DL (0.70-1.30); GLOMERULAR FILTRATION RATE > 60.0 (>60); GLUCOSE, FASTING 73 MG/DL (70-100); POTASSIUM SERUM 3.7 MEQ/L (3.5-5.1); SODIUM LEVEL 132 MEQ/L (136-145); TOTAL PROTEIN 8.7 GM/DL (6.4-8.2)
[2019-05-02 16:55] LABS: BASO % 0.4 % (0.0-1.0); EOS # 0.6 10^3/uL (0.0-0.5); EOS % 6.7 % (0.0-3.0); HEMATOCRIT 38.7 % (42.0-52.0); HEMOGLOBIN 13.3 g/dl (13.5-17.5); LYMPH # 1.4 10^3/uL (1.5-5.0); LYMPH % 15.4 % (24.0-44.0); MEAN CORPUSCULAR HEMOGLOBIN 29.8 pg (27.0-33.0); MEAN CORPUSCULAR HGB CONC 34.4 g/dl (32.0-36.5); MEAN CORPUSCULAR VOLUME 86.8 fl (80.0-96.0); MONO % 11.5 % (0.0-5.0); NEUTROPHILS # 5.8 10^3/uL (1.5-8.5); NEUTROPHILS % 65.8 % (36.0-66.0); PLATELET COUNT, AUTOMATED 152 10^3/uL (150-450); RED BLOOD COUNT 4.46 10^6/uL (4.30-6.10); WHITE BLOOD COUNT 8.9 10^3/uL (4.0-10.0)
[2019-05-02 18:06] LABS: ERYTHROCYTE SEDIMENTATION RATE 43 mm/hr (0-15)
[2019-05-02] MEDS ORDERED: BACTRIM 160MG/800MG DS TAB PO ONE (18:45)
[2019-05-02 20:30] VITALS: BP 113/67
[2019-05-02] MEDS ORDERED: BACT800T5 PO (21:20)
--- NOTE | 2019-05-03 06:23 | REP ---
RIGHT ANKLE SERIES: Four views. HISTORY: Pain and swelling. FINDINGS: Four views of the right ankle demonstrate moderate to marked diffuse periarticular ankle swelling. Ankle mortise is intact. No fracture is seen. There is some edema in the pre-Achilles fat but the anterior margin of the Achilles tendon appears fairly smooth. IMPRESSION: Diffuse moderate to marked soft tissue swelling. No acute bony abnormality is seen. Swelling includes the pre-Achilles fat. Electronically Signed by Trino Rouse MD 05/03/2019 08:10 A
== END 2019-05-02 21:33 | disposition home or self-care (01) ==
LOC: M ED 12:26 → EDBD 12:26 → M ED 21:33
DX: L03.90 Cellulitis, unspecified (principal); F11.120 Opioid abuse with intoxication, uncomplicated; B19.20 Unspecified viral hepatitis C without hepatic coma; F17.200 Nicotine dependence, unspecified, uncomplicated; Z79.899 Other long term (current) drug therapy

== ENCOUNTER 2020-01-19 00:29 | Emergency (ER) | payer MEDICAID, OTHER ==
[~2020-01-19] VITALS: Ht 175.3 cm; Wt 70.5 kg
[~2020-01-19 00:29] MED LIST changes: +METH10TA2 PO; +METH5TA PO
[2020-01-19] MEDS ORDERED: KETOROLAC 30 MG/ML 1ML VIAL IV ONE (01:00)
[2020-01-19] MEDS ORDERED: NS 1,000 ML IV ONE (01:00)
[2020-01-19 01:21] LABS: BASO # 0.1 10^3/uL (0.0-0.2); BASO % 0.6 % (0.0-1.0); EOS # 0.4 10^3/uL (0.0-0.5); EOS % 4.5 % (0.0-3.0); HEMATOCRIT 40.8 % (42.0-52.0); LYMPH # 2.2 10^3/uL (1.5-5.0); LYMPH % 23.4 % (24.0-44.0); MEAN CORPUSCULAR HEMOGLOBIN 29.1 pg (27.0-33.0); MEAN CORPUSCULAR HGB CONC 34.3 g/dl (32.0-36.5); MEAN CORPUSCULAR VOLUME 84.8 fl (80.0-96.0); MONO # 0.7 10^3/uL (0.0-0.8); MONO % 7.8 % (0.0-5.0); NEUTROPHILS # 5.9 10^3/uL (1.5-8.5); NEUTROPHILS % 63.5 % (36.0-66.0); PLATELET COUNT, AUTOMATED 205 10^3/uL (150-450); RED BLOOD COUNT 4.81 10^6/uL (4.30-6.10); WHITE BLOOD COUNT 9.3 10^3/uL (4.0-10.0)
--- NOTE | 2020-01-19 01:37 | REP ---
Clinical: Pain and swelling. Technique: AP, lateral, bilateral oblique views left hand . Findings: The osseous structures and joint spaces are intact and normal. There is no evidence for acute fracture or dislocation. No periosteal reaction. Surrounding soft tissues are unremarkable. No subcutaneous emphysema or radiodense foreign body. Impression: Swelling primarily noted surrounding the first digit. No evidence for acute injury. Electronically Signed by Torsten March MD 01/19/2020 01:28 A
[2020-01-19 01:46] LABS: ERYTHROCYTE SEDIMENTATION RATE 17 mm/hr (0-15)
[2020-01-19] MEDS ORDERED: BACT800T5 PO (02:05)
[2020-01-19] MEDS ORDERED: VANCOMYCIN HCL 1,500 MG in IV FLUID PLACE HOLDER 1 EA IV ONE (02:15)
[2020-01-19] MEDS ORDERED: VANCOMYCIN HCL 1,500 MG in D5W 250 ML IV ONE (02:45)
[2020-01-19] MEDS ORDERED: VANCOMYCIN HCL 750 MG, VIAL MATE ADAPTER 1 EACH in D5W 250 ML IV ONE ×2 (02:45→03:45)
[2020-01-19 04:58] VITALS: BP 124/72
== END 2020-01-19 05:14 | disposition home or self-care (01) ==
LOC: M ED 00:29
DX: L03.012 Cellulitis of left finger (principal); F11.10 Opioid abuse, uncomplicated; F15.10 Other stimulant abuse, uncomplicated; F17.200 Nicotine dependence, unspecified, uncomplicated
CPT/HCPCS: 73130; 80047; 83605; 85025; 85652; 86140; 87040; 96365; 96366; 96375; 99284; J1885; J3370